=== PATIENT | female | born 1950 | race Caucasian/White ===

== ENCOUNTER 2019-07-25 07:01 | Day surgery (SDC) | payer MEDICARE, OTHER ==
[2019-07-24 15:10] LABS: BASOPHILS % (AUTO) 0.3 % (0-1); EOSINOPHILS # (AUTO) 0.3 X10'3 (0-0.9); EOSINOPHILS % (AUTO) 2.1 % (0-6); HEMATOCRIT 46.2 % (35.0-45.0); LYMPHOCYTES # (AUTO) 2.8 X10'3 (1.1-4.8); LYMPHOCYTES % (AUTO) 21.1 % (21-51); MEAN CORPUSCULAR HEMOGLOBIN 29.1 PG (27.0-31.0); MEAN CORPUSCULAR HGB CONC 32.5 g/dL (33.0-36.5); MEAN CORPUSCULAR VOLUME 89.4 FL (78-98); MEAN PLATELET VOLUME 8.2 FL (7.4-10.4); MONOCYTES # (AUTO) 1.3 X10'3 (0-0.9); MONOCYTES % (AUTO) 10.2 % (2-12); NEUTROPHILS # (AUTO) 8.8 X10'3 (1.8-7.7); NEUTROPHILS % (AUTO) 66.3 % (42-75); PLATELET COUNT 332 X10'3 (140-440); RED BLOOD COUNT 5.16 X10'6 (4.20-5.60); RED CELL DISTRIBUTION WIDTH 13.6 % (11.5-14.5); WHITE BLOOD COUNT 13.2 X10'3 (4.5-11.0)
[2019-07-24 15:17] LABS: ALBUMIN 3.4 G/DL (3.4-5.0); ANION GAP 8 (8-16); BLOOD UREA NITROGEN 27 MG/DL (7-18); BUN/CREATININE RATIO 23.9 (6.6-38.0); CALCIUM 8.8 MG/DL (8.5-10.1); CHLORIDE 106 MMOL/L (99-107); CREATININE 1.13 MG/DL (0.40-0.90); GLUCOSE 110 MG/DL (70-104); POTASSIUM 4.2 MMOL/L (3.5-5.1); SODIUM 141 MMOL/L (135-145); TOTAL CARBON DIOXIDE 27.1 MMOL/L (24-32); eGFR 48 ML/MIN
[2019-07-25] VITALS (15 sets, daily range): BP systolic 104–143; BP diastolic 40–112
[~2019-07-25] VITALS: Ht 160 cm; Wt 109.9 kg
[~2019-07-25 07:01] MED LIST: APIX5TAB3 PO; BUPR100T16 PO; DILT30TA5 PO; SOTA80TA73 PO; THYR60TA2 PO
[2019-07-25] MEDS ORDERED: LORazepam 0.5 MG tablet PO ONE (07:30)
[2019-07-25] MEDS ORDERED: diphenhydrAMINE 25mg capsule PO ONE (07:30)
[2019-07-25] MEDS ORDERED: MIDAZolam 1mg/ml 10ml vial IV ONE (07:30)
[2019-07-25] MEDS ORDERED: amiodarone in dextrose, iso-osm 150mg/100ml bag IV ONE (07:30)
[2019-07-25] MEDS ORDERED: normal saline 1000ml 1,000 ML IV SCH (07:30)
[2019-07-25] MEDS ORDERED: morphine 10mg/ml inj. IV ONE (07:30)
[2019-07-25] MEDS ORDERED: atropine 0.1mg/ml 10ml syringe IV ONE (07:30)
[2019-07-25] MEDS ORDERED: HYDR12.55 PO (08:37)
[2019-07-25] MEDS ORDERED: SOTA80TA73 PO (08:37)
[2019-07-25] MEDS ORDERED: [UNRECOGNIZED DRUG - CODE] (08:37)
[2019-07-25] MEDS ORDERED: MAGN250T11 PO (08:37)
[2019-07-25] MEDS ORDERED: DILT240C47 PO (08:37)
[2019-07-25] MEDS ORDERED: APIX5TAB3 PO (08:37)
[2019-07-25] MEDS ORDERED: LEVO150T8 PO (08:37)
[2019-07-25] MEDS ORDERED: ASCO500C12 PO (08:37)
[2019-07-25] MEDS ORDERED: AMOX-14 PO (08:37)
== END 2019-07-25 10:45 | disposition home or self-care (01) ==
LOC: SSTAY O 07:01
PROVIDERS: ATTEND Internal Medicine Cardiovascular Disease
DX: I48.0 Paroxysmal atrial fibrillation (principal); I10 Essential (primary) hypertension; G47.30 Sleep apnea, unspecified; Z79.899 Other long term (current) drug therapy
CPT/HCPCS: 36415; 80048; 85025; 85610; 92960; 93005; 94760; J2250; J2270; J7030